=== PATIENT | female | born 1960 | race Caucasian/White ===

== ENCOUNTER 2018-06-16 14:46 | Observation (INO) | payer OTHER, MEDICAID, SELFPAY ==
[2018-06-16] VITALS (9 sets, daily range): BP systolic 99–117; BP diastolic 46–67; PULSE 64–72; RESP 13–20; TEMP 36.5–36.6; O2SAT 94–99; BMI 33.2
--- NOTE | 2018-06-16 | DI.ECHO.S_ITS ---
[facility] +---------+ : : [address] : : : : [address] : : : : [place], : : : : [place] [id number] : : : : Phone: [phone] + On license of [facility]-2017 Echocardiogram Report + + :Name: SHUKRI RIZZO Study Date: 06/17/2018 Height: 63 in : :[facility] Exam Location: [facility] Weight: 191 lb : : Gender: Female BSA: 1.9 m2 : :: 1960 Age: 58 yrs BP: 143/81 mmHg: :Reason For Study: Large Acute PE : :Ordering Physician: [place] : :Hospitalist Performed By: Carla Page : :Referring: MITCHEL MARCANO : + + Interpretation Summary The ejection fraction is estimated to be 60-65%. The right ventricle is mildly dilated. The right ventricular systolic function is normal. There is no significant valvular heart disease. Procedure: A two-dimensional transthoracic echocardiogram with color flow and Doppler was performed. The study quality was technically adequate. There is no prior echocardiogram noted for this patient. The patient was in normal sinus rhythm during the exam. Left Ventricle: The left ventricle is normal in size, wall thickness, and systolic function without any focal wall motion abnormalities. The ejection fraction is estimated to be 60-65%. Left ventricular wall motion is normal. Right Ventricle: The right ventricle is mildly dilated. The right ventricular systolic function is normal. Atria: The left atrium is mildly dilated. Right atrial size is normal. There is no Doppler evidence for an interatrial shunt. Mitral Valve: The mitral valve is normal in structure and function. There is mild mitral annular calcification. There is trace mitral regurgitation. Aortic Valve: The aortic valve is trileaflet. The aortic valve opens well. No aortic regurgitation is present. Tricuspid Valve: The tricuspid valve is normal in structure and function. There is trace tricuspid regurgitation. The right ventricular systolic pressure is estimated to be at least 23 mmHg based on an estimated right atrial pressure of 3 mm Hg. Pulmonic Valve: The pulmonic valve is not well visualized. There is a trace or physiologic amount of pulmonic regurgitation. Great Vessels: The aortic root is normal size. The ascending aorta is at the upper limits of normal in size. The aortic arch is normal in size. The pulmonary artery is not well visualized, but is probably normal size. The IVC is of normal diameter and collapses greater than 50% with a sniff. This suggests a low right atrial pressure of 3 mm Hg. Pericardium/ Pleura There is no pericardial effusion. Can not rule out left sided pleural effusion. MMode/2D Measurements & Calculations LVIDd: 4.8 cm AoV Openin.6 cm LVIDs: 2.6 cm LVOT diam: 2.2 cm IVSd: 0.73 cm Ao root diam: 3.7 cm LVPWd: 0.68 cm asc Aorta Diam: 3.4 cm LV flowers. diameter/BSA (cm/m^2): 2.5 Ao Arch Diam (Prox Trans): 3.0 cm LV sys. diameter/BSA (cm/m^2): 1.4 FS: 45.5 % EPSS: 0.20 cm LA A2 area: 22.8 cm2 RA long axis: 5.7 cm LA A4 area: 22.3 cm2 RA area: 19.4 cm2 LA length (vol): 5.9 cm RA vol: 56.1 ml LA vol: 73.1 ml RA : 29.6 ml/m2 LA vol index: 38.6 ml/m2 RVD1 (basal): 4.3 cm IVC diam: 1.9 cm TAPSE: 2.4 cm Doppler Measurements & Calculations Ao V2 max: 168.3 cm/sec LVOT Max Mohamud: 117.3 cm/sec Ao V2 mean: 121.0 cm/sec LV V1 max P.5 mmHg Ao V2 VTI: 35.6 cm LV V1 VTI: 25.7 cm Ao max P.3 mmHg Ao mean P.3 mmHg JESI(I,D): 2.8 cm2 MV E max mohamud: 94.4 cm/sec JESI(V,D): 2.7 cm2 MV A max mohamud: 58.7 cm/sec JESI indexed to BSA (cm^2/m^2): 1.5 MV E/A: 1.6 sev ratio: 0.72 Med Peak E' Mohamud: 6.9 cm/sec E/E' med: 13.7 Lat Peak E' Mohamud: 14.1 cm/sec E/E' lat: 6.7 E/e' average: 10.2 MV dec time: 0.20 sec TR max mohamud: 225.3 cm/sec MV P1/2t: 58.8 msec TR max P.3 mmHg MVA(P1/2t): 3.7 cm2 PA V2 max: 83.4 cm/sec SV(LVOT): 99.8 ml PA V2 mean: 63.2 cm/sec PA mean P.7 mmHg PA Accel Time: 0.11 sec Reading Physician:01:17 PM
--- NOTE | 2018-06-16 15:11 | ED.CHESTPAIN ---
HPI - Chest Pain General Chief Complaint: Chest Pain Stated Complaint: Chest pain sob Time Seen by Provider: 06/16/18 15:01 Source: patient Mode of arrival: ambulatory Limitations: no limitations History of Present Illness HPI narrative: Patient is a 58-year-old female with history of breast cancer and pulmonary embolism presenting today with 4 day history of right-sided chest pain. She says she was smoking some marijuana the next day she had some right-sided pain. she tried her albuterol inhaler which she said did not help. He then she thought that she was having a pulmonary embolism she had 10 years ago, she took 10 mg x2 doses of Coumadin 1 last night and 1 the night before. Today she coughed up large blood clots. She overall is feeling better. She denies any fever or chills. She is not on any hormones she no recent traveling. MD complaint: chest pain Related Data Home Medications Medication Instructions Recorded Confirmed Essential Oils 1 dose PO DAILY 06/16/18 06/16/18 MigreLief 1 tab PO DAILY 06/16/18 06/16/18 Vitamin B-12 1 tab PO DAILY 06/16/18 06/16/18 acyclovir 1 applic TOPICAL DIRECTED 06/16/18 06/16/18 albuterol sulfate [ProAir HFA] 1 puff INHALATION PRN PRN 06/16/18 06/16/18 cannabidiol (CBD) extract 1 dose PO BID 06/16/18 06/16/18 escitalopram oxalate 5 mg PO DAILY 06/16/18 06/16/18 fluticasone propion-salmeterol 1 puff INHALATION BID 06/16/18 06/16/18 lysine 1 tab PO DAILY 06/16/18 06/16/18 omega 1-xbj-gfg-fish oil [Fish Oil] 1 dose PO DAILY 06/16/18 06/16/18 turmeric 1 cap PO DAILY 06/16/18 06/16/18 valacyclovir 1 g PO DAILY 06/16/18 06/16/18 warfarin [Coumadin] 10 mg PO QPM 06/16/18 06/16/18 Allergies Allergy/AdvReac Type Severity Reaction Status Date / Time No Known Drug Allergies Allergy Verified 06/16/18 17:11 Review of Systems Review of Systems ROS Unobtainable: All systems reviewed & are unremarkable except as noted in HPI and below Constitutional Denies chills, Denies fever(s), Denies lethargy and Denies weakness ENT Ears, Nose, Mouth, and Throat: Denies abnormal hearing Cardiovascular Reports as per HPI, Reports chest pain (Right-sided), Denies rapid heart rate, Denies pedal edema, Denies edema and Reports dyspnea Respiratory Denies cough, Reports hemoptysis and Reports dyspnea Gastrointestinal Gastrointestinal: Denies abdominal pain, Denies change in bowel habits, Denies diarrhea, Denies nausea and Denies vomiting Genitourinary Denies hematuria, Denies flank pain, Denies urinary incontinence and Denies urinary urgency Integumentary/Breasts Denies pruritus, Denies erythema, Denies rash and Denies wounds Neurologic Denies abnormal hearing, Denies confusion and Denies weakness Psychiatric Denies confusion [facility] Medical History (Updated 06/16/18 @ 17:30 by Selene Hunter DO) Breast cancer (Acute) Pulmonary embolism (Acute) Social History (Updated 06/16/18 @ 15:38 by Selene Hunter DO) Smoking Status: Former smoker alcohol intake: never substance use type: marijuana Social History (Updated 06/16/18 @ 15:38 by Selene Hunter DO) Smoking Status: Former smoker alcohol intake: never substance use type: marijuana Comment: All siblings had pulmonary embolisms some of them have from the Exam Initial Vital Signs Initial Vital Signs: Vital Signs Temperature 97.9 F 06/16/18 15:19 Pulse Rate 72 06/16/18 15:19 Respiratory Rate 20 06/16/18 15:19 Blood Pressure 110/60 06/16/18 15:19 Pulse Oximetry 99 06/16/18 15:19 GENERAL: Well-appearing, well-nourished and in no acute distress. HEENT: Head atraumatic,EOMI, pupils reactive, face symmetric, CARDIOVASCULAR: Regular rate and rhythm without murmurs, rubs or gallops. RESPIRATORY: Breath sounds equal bilaterally, no wheezes rales or rhonchi. ABDOMEN: Soft, nontender. Normoactive bowel sounds all 4 quadrants. No guarding or rebound. EXTREMITIES: Normal range of motion, no clubbing or edema. Neurovascularly intact NEUROLOGICAL: Alert and oriented x4.Normal gait and speech. Cranial nerves II through XII grossly intact. SKIN: Warm, dry, no laceration, no petechiae, no rashes or lesions. Course Orders Ordered: ED Orders 06/16/18 15:00 Complete Blood Count AUTO DIFF Stat Comprehensive Metabolic Panel Stat Lipase Stat Partial Thromboplastin Time Stat Prothrombin Time INR Stat Troponin & CK Cardiac Panel Stat 06/16/18 15:29 EKG-12 Lead Stat 06/16/18 15:30 CT angio chest PE protocol Stat 06/16/18 17:14 Partial Thromboplastin Time Stat 06/16/18 23:00 PTT [Partial Thromboplastin Time] Q6H 06/17/18 05:00 Hemoglobin and Hematocrit DAILY PTT [Partial Thromboplastin Time] Q6H 06/17/18 11:00 PTT [Partial Thromboplastin Time] Q6H Heparin Sodium/Dextrose (Heparin Drip) 25,000 unit in 500 mls @ 31.32 mls/hr IV CONT ELLI; Protocol Last Admin: 06/16/18 17:13 Dose: 18 units/kg/hr, 31.32 mls/hr Sodium Chloride (Normal Saline 0.9%) 1,000 mls @ 84 mls/hr IV CONT ELLI Last Admin: 06/16/18 17:17 Dose: 84 mls/hr Discontinued Medications Heparin Sodium (Porcine) (Heparin) 7,000 unit 80 unit/kg (7000 unit) IV NOW ONE Stop: 06/16/18 17:01 Last Admin: 06/16/18 17:12 Dose: 7,000 unit Vital Signs - 8 hr 06/16/18 15:19 06/16/18 16:00 06/16/18 17:06 Temperature 97.9 F Pulse Rate 72 69 68 Respiratory Rate 20 18 13 Blood Pressure 110/60 Blood Pressure [Left Arm] 104/67 Pulse Oximetry 99 96 06/16/18 17:30 Temperature Pulse Rate 71 Respiratory Rate 19 Blood Pressure Blood Pressure [Left Arm] 99/46 L Pulse Oximetry 98 MDM - Chest Pain Lab Data Attestation: I reviewed the patient's lab results. Result diagrams: 06/16/18 15:00 06/16/18 15:00 Lab Results 06/16/18 06/16/18 06/16/18 Range/Units 15:00 15:00 15:00 WBC 8.2 (4.5-11.0) X10^3/uL RBC 4.53 (4.0-5.2) X10^6/uL Hgb 13.1 (12.0-16.0) g/dL Hct 38.4 (36-46) % MCV 84.7 (80-100) fL MCH 28.9 (26-34) PG MCHC 34.1 (30-36) % RDW 14.1 (11.6-14.8) % Plt Count 250 (150-400) X10^3/uL Neut % (Auto) 68.9 (50-75) % Lymph % (Auto) 17.1 L (25-40) % [place] % (Auto) 9.2 (3-14) % Eos % (Auto) 4.2 H (2-4) % Baso % (Auto) 0.6 (0-2) % Neut # (Auto) 5600 (5379-1627) /uL Lymph # (Auto) 1400 (9696-1649) /uL [place] # (Auto) 800 (0-900) /uL Eos # (Auto) 300 (0-450) /uL Baso # (Auto) 100 (0-100) /uL PT 17.1 H (10.1-12.7) SECONDS INR 1.5 H (0.9-1.3) APTT 30 (26.4-36.2) SECONDS Sodium 136 L (137-145) mmol/L Potassium 4.2 (3.4-5.1) mmol/L Chloride 102 (98-107) mmol/L Carbon Dioxide 26 (22-32) mmol/L BUN 8 (7-17) mg/dL Creatinine 0.50 L (0.52-1.04) mg/dL Estimated GFR > 60.0 (>60) mL/min BUN/Creatinine Ratio 16.0 (6-22) Glucose 84 (70-100) mg/dL Calcium 9.1 (8.4-10.2) mg/dL Total Bilirubin 0.3 (0.2-1.3) mg/dL AST 17 (14-36) IU/L ALT 19 (9-52) IU/L Alkaline Phosphatase 84 (38-126) U/L Total Creatine Kinase 51 (30-135) U/L CK-MB (CK-2) TNP CK-MB (CK-2) Rel Index TNP Troponin I < 0.012 (0.01-0.034) ng/mL Total Protein 7.5 (6.3-8.2) g/dL Albumin 4.2 (3.5-5.0) g/dL Globulin 3.3 (1.7-4.1) g/dL Albumin/Globulin Ratio 1.3 (1.0-2.8) Lipase 52 (23-300) U/L / Range/Units 17:14 WBC (4.5-11.0) X10^3/uL RBC (4.0-5.2) X10^6/uL Hgb (12.0-16.0) g/dL Hct (36-46) % MCV (80-100) fL MCH (26-34) PG MCHC (30-36) % RDW (11.6-14.8) % Plt Count (150-400) X10^3/uL Neut % (Auto) (50-75) % Lymph % (Auto) (25-40) % [place] % (Auto) (3-14) % Eos % (Auto) (2-4) % Baso % (Auto) (0-2) % Neut # (Auto) (6091-3684) /uL Lymph # (Auto) (6200-2124) /uL [place] # (Auto) (0-900) /uL Eos # (Auto) (0-450) /uL Baso # (Auto) (0-100) /uL PT (10.1-12.7) SECONDS INR (0.9-1.3) APTT 31 (26.4-36.2) SECONDS Sodium (137-145) mmol/L Potassium (3.4-5.1) mmol/L Chloride (98-107) mmol/L Carbon Dioxide (22-32) mmol/L BUN (7-17) mg/dL Creatinine (0.52-1.04) mg/dL Estimated GFR (>60) mL/min BUN/Creatinine Ratio (6-22) Glucose (70-100) mg/dL Calcium (8.4-10.2) mg/dL Total Bilirubin (0.2-1.3) mg/dL AST (14-36) IU/L ALT (9-52) IU/L Alkaline Phosphatase (38-126) U/L Total Creatine Kinase (30-135) U/L CK-MB (CK-2) CK-MB (CK-2) Rel Index Troponin I (0.01-0.034) ng/mL Total Protein (6.3-8.2) g/dL Albumin (3.5-5.0) g/dL Globulin (1.7-4.1) g/dL Albumin/Globulin Ratio (1.0-2.8) Lipase (23-300) U/L Imaging Data CT scan - chest: Radiologist's impression: PROCEDURE: CT ANGIO CHEST PE PROTOCOL INDICATIONS: right sided pain hx of PE TECHNIQUE: After the administration of intravenous contrast, 2 mm thick sections acquired from the pulmonary apices to the posterior costophrenic angles. 3-dimensional maximum intensity projection (MIP) coronal and sagittal reformats were then acquired through the thorax. For radiation dose reduction, the following was used: automated exposure control, adjustment of mA and/or kV according to patient size. COMPARISON: None. FINDINGS: Image quality: Excellent. Pulmonary arteries: Main pulmonary trunk and left arteries are normal in size, and demonstrate no intraluminal filling defects to suggest central pulmonary embolism. There is large filling defect within distal right main pulmonary artery extending to segmental and subsegmental branches of right upper, middle and lower lobe pulmonary arteries consistent with extensive right-sided pulmonary emboli. Main pulmonary trunk is slightly enlarged measures up to 3.1 cm in diameter. Early pulmonary vascular hypertension cannot be excluded. Lungs and pleura: There is a small right pleural effusion. Ill-defined patchy airspace opacities are seen scattered in anterior periphery of right upper lobe, anterior and medial periphery of right middle lobe and posterior aspect of right lower lobe. Left basilar scarring/atelectasis is also seen. No pneumothorax. Central and peripheral airways are patent. Mediastinum: Heart size is enlarged, without pericardial effusion. No mediastinal or hilar adenopathy. Thoracic aorta is normal in caliber and enhancement. Esophagus is normal in caliber, with a small hiatal hernia. Bones and chest wall: No suspicious bony lesions. Ribs and thoracic spine appear intact throughout. Left thyroid lobe is asymmetrically enlarged containing coarse calcifications and suggestion of hypodense left thyroid nodule in mid to lower pole. No axillary or supraclavicular adenopathy. Abdomen: Visualized upper abdominal solid organs appear normal in the early arterial phase of enhancement. IMPRESSION: 1. Extensive pulmonary emboli involving right main pulmonary artery distally extending to segmental and subsegmental branches of right pulmonary arteries. No left-sided pulmonary emboli. 2. Small right pleural effusion. Patchy small infiltrates/atelectasis scattered in periphery of right lung field and left lung base. No pneumothorax. Airway is patent. 3. Mildly enlarged main pulmonary artery, early pulmonary vascular hypertension cannot be excluded. 4. Asymmetrically enlarged left thyroid lobe with dystrophic calcification and suggestion of hypodense left thyroid lobe nodule suspicious for nodular goiter. Dictated by: Fransisco Hamm M.D. on 06/16/2018 at 16:53 ECG Data Attestation: I personally reviewed and interpreted this ECG as follows: Prior ECG tracings: not available for review Interpretation: Normal sinus rhythm rate 71 year interval [address] changes or T-wave inversions MDM Narrative Medical decision making narrative: 4:55 p.m. I received a call from Radiology Dr. Dueñas, radiology who states the patient does have a large right-sided pulmonary embolism. I asked specifically about right heart strain. He said it is relatively large but does not appreciate right heart strain. Patient is feeling better after she she coughed up a blood clots at home. She is not hypoxic or hypotensive. Hemodynamically stable. INR is subtherapeutic 1.5 she is started on heparin bolus and heparin drip. Dr. Crawford, happily accepts patient and is in ED to see and evaluate the patient. Discharge Plan Departure Patient Disposition: Admitted As Inpatient Clinical Impression: Pulmonary embolism Qualifiers: Pulmonary embolism type: unspecified Chronicity: acute Acute cor pulmonale presence: without acute cor pulmonale Qualified Code(s): I26.99 - Other pulmonary embolism without acute cor pulmonale
--- NOTE | 2018-06-16 15:30 | DI.CT.S_ITS ---
PROCEDURE: CT ANGIO CHEST PE PROTOCOL INDICATIONS: right sided pain hx of PE TECHNIQUE: After the administration of intravenous contrast, 2 mm thick sections acquired from the pulmonary apices to the posterior costophrenic angles. 3-dimensional maximum intensity projection (MIP) coronal and sagittal reformats were then acquired through the thorax. For radiation dose reduction, the following was used: automated exposure control, adjustment of mA and/or kV according to patient size. COMPARISON: None. FINDINGS: Image quality: Excellent. Pulmonary arteries: Main pulmonary trunk and left arteries are normal in size, and demonstrate no intraluminal filling defects to suggest central pulmonary embolism. There is large filling defect within distal right main pulmonary artery extending to segmental and subsegmental branches of right upper, middle and lower lobe pulmonary arteries consistent with extensive right-sided pulmonary emboli. Main pulmonary trunk is slightly enlarged measures up to 3.1 cm in diameter. Early pulmonary vascular hypertension cannot be excluded. Lungs and pleura: There is a small right pleural effusion. Ill-defined patchy airspace opacities are seen scattered in anterior periphery of right upper lobe, anterior and medial periphery of right middle lobe and posterior aspect of right lower lobe. Left basilar scarring/atelectasis is also seen. No pneumothorax. Central and peripheral airways are patent. Mediastinum: Heart size is enlarged, without pericardial effusion. No mediastinal or hilar adenopathy. Thoracic aorta is normal in caliber and enhancement. Esophagus is normal in caliber, with a small hiatal hernia. Bones and chest wall: No suspicious bony lesions. Ribs and thoracic spine appear intact throughout. Left thyroid lobe is asymmetrically enlarged containing coarse calcifications and suggestion of hypodense left thyroid nodule in mid to lower pole. No axillary or supraclavicular adenopathy. Abdomen: Visualized upper abdominal solid organs appear normal in the early arterial phase of enhancement. IMPRESSION: 1. Extensive pulmonary emboli involving right main pulmonary artery distally extending to segmental and subsegmental branches of right pulmonary arteries. No left-sided pulmonary emboli. 2. Small right pleural effusion. Patchy small infiltrates/atelectasis scattered in periphery of right lung field and left lung base. No pneumothorax. Airway is patent. 3. Mildly enlarged main pulmonary artery, early pulmonary vascular hypertension cannot be excluded. 4. Asymmetrically enlarged left thyroid lobe with dystrophic calcification and suggestion of hypodense left thyroid lobe nodule suspicious for nodular goiter. Dictated by: Fransisco Hamm M.D. on 06/16/2018 at 16:53 Approved by: Fransisco Hamm M.D. on 06/16/2018 at 17:02
--- NOTE | 2018-06-16 15:38 | ED_ITS ---
HPI - Chest Pain General Chief Complaint: Chest Pain Stated Complaint: Chest pain sob Time Seen by Provider: 06/16/18 15:01 Source: patient Mode of arrival: ambulatory Limitations: no limitations History of Present Illness HPI narrative: Patient is a 58-year-old female with history of breast cancer and pulmonary embolism presenting today with 4 day history of right-sided chest pain. She says she was smoking some marijuana the next day she had some right- sided pain. she tried her albuterol inhaler which she said did not help. He then she thought that she was having a pulmonary embolism she had 10 years ago, she took 10 mg x2 doses of Coumadin 1 last night and 1 the night before. Today she coughed up large blood clots. She overall is feeling better. She denies any fever or chills. She is not on any hormones she no recent traveling. MD complaint: chest pain Related Data Home Medications Medication Instructions Recorded Confirmed Essential Oils 1 dose PO DAILY 06/16/18 06/16/18 MigreLief 1 tab PO DAILY 06/16/18 06/16/18 Vitamin B-12 1 tab PO DAILY 06/16/18 06/16/18 acyclovir 1 applic TOPICAL DIRECTED 06/16/18 06/16/18 albuterol sulfate [ProAir HFA] 1 puff INHALATION PRN PRN 06/16/18 06/16/18 cannabidiol (CBD) extract 1 dose PO BID 06/16/18 06/16/18 escitalopram oxalate 5 mg PO DAILY 06/16/18 06/16/18 fluticasone propion-salmeterol 1 puff INHALATION BID 06/16/18 06/16/18 lysine 1 tab PO DAILY 06/16/18 06/16/18 omega 9-sug-bjk-fish oil [Fish Oil] 1 dose PO DAILY 06/16/18 06/16/18 turmeric 1 cap PO DAILY 06/16/18 06/16/18 valacyclovir 1 g PO DAILY 06/16/18 06/16/18 warfarin [Coumadin] 10 mg PO QPM 06/16/18 06/16/18 Allergies Allergy/AdvReac Type Severity Reaction Status Date / Time No Known Drug Allergies Allergy Verified 06/16/18 17:11 Review of Systems Review of Systems ROS Unobtainable: All systems reviewed & are unremarkable except as noted in HPI and below Constitutional Denies chills, Denies fever(s), Denies lethargy and Denies weakness ENT Ears, Nose, Mouth, and Throat: Denies abnormal hearing Cardiovascular Reports as per HPI, Reports chest pain (Right-sided), Denies rapid heart rate, Denies pedal edema, Denies edema and Reports dyspnea Respiratory Denies cough, Reports hemoptysis and Reports dyspnea Gastrointestinal Gastrointestinal: Denies abdominal pain, Denies change in bowel habits, Denies diarrhea, Denies nausea and Denies vomiting Genitourinary Denies hematuria, Denies flank pain, Denies urinary incontinence and Denies urinary urgency Integumentary/Breasts Denies pruritus, Denies erythema, Denies rash and Denies wounds Neurologic Denies abnormal hearing, Denies confusion and Denies weakness Psychiatric Denies confusion [facility] Medical History (Updated 06/16/18 @ 17:30 by Selene Hunter DO) Breast cancer (Acute) Pulmonary embolism (Acute) Social History (Updated 06/16/18 @ 15:38 by Selene Hunter DO) Smoking Status: Former smoker alcohol intake: never substance use type: marijuana Social History (Updated 06/16/18 @ 15:38 by Selene Hunter DO) Smoking Status: Former smoker alcohol intake: never substance use type: marijuana Comment: All siblings had pulmonary embolisms some of them have from the Exam Initial Vital Signs Initial Vital Signs: Vital Signs Temperature 97.9 F 06/16/18 15:19 Pulse Rate 72 06/16/18 15:19 Respiratory Rate 20 06/16/18 15:19 Blood Pressure 110/60 06/16/18 15:19 Pulse Oximetry 99 06/16/18 15:19 GENERAL: Well-appearing, well-nourished and in no acute distress. HEENT: Head atraumatic,EOMI, pupils reactive, face symmetric, CARDIOVASCULAR: Regular rate and rhythm without murmurs, rubs or gallops. RESPIRATORY: Breath sounds equal bilaterally, no wheezes rales or rhonchi. ABDOMEN: Soft, nontender. Normoactive bowel sounds all 4 quadrants. No guarding or rebound. EXTREMITIES: Normal range of motion, no clubbing or edema. Neurovascularly intact NEUROLOGICAL: Alert and oriented x4.Normal gait and speech. Cranial nerves II through XII grossly intact. SKIN: Warm, dry, no laceration, no petechiae, no rashes or lesions. Course Orders Ordered: ED Orders 06/16/18 15:00 Complete Blood Count AUTO DIFF Stat Comprehensive Metabolic Panel Stat Lipase Stat Partial Thromboplastin Time Stat Prothrombin Time INR Stat Troponin & CK Cardiac Panel Stat 06/16/18 15:29 EKG-12 Lead Stat 06/16/18 15:30 CT angio chest PE protocol Stat 06/16/18 17:14 Partial Thromboplastin Time Stat 06/16/18 23:00 PTT [Partial Thromboplastin Time] Q6H 06/17/18 05:00 Hemoglobin and Hematocrit DAILY PTT [Partial Thromboplastin Time] Q6H 06/17/18 11:00 PTT [Partial Thromboplastin Time] Q6H Heparin Sodium/Dextrose (Heparin Drip) 25,000 unit in 500 mls @ 31.32 mls/hr IV CONT ELLI; Protocol Last Admin: 06/16/18 17:13 Dose: 18 units/kg/hr, 31.32 mls/hr Sodium Chloride (Normal Saline 0.9%) 1,000 mls @ 84 mls/hr IV CONT ELLI Last Admin: 06/16/18 17:17 Dose: 84 mls/hr Discontinued Medications Heparin Sodium (Porcine) (Heparin) 7,000 unit 80 unit/kg (7000 unit) IV NOW ONE Stop: 06/16/18 17:01 Last Admin: 06/16/18 17:12 Dose: 7,000 unit Vital Signs - 8 hr 06/16/18 15:19 06/16/18 16:00 06/16/18 17:06 Temperature 97.9 F Pulse Rate 72 69 68 Respiratory Rate 20 18 13 Blood Pressure 110/60 Blood Pressure [Left Arm] 104/67 Pulse Oximetry 99 96 06/16/18 17:30 Temperature Pulse Rate 71 Respiratory Rate 19 Blood Pressure Blood Pressure [Left Arm] 99/46 L Pulse Oximetry 98 MDM - Chest Pain Lab Data Attestation: I reviewed the patient's lab results. Result diagrams: 06/16/18 15:00 06/16/18 15:00 Lab Results 06/16/18 06/16/18 06/16/18 Range/Units 15:00 15:00 15:00 WBC 8.2 (4.5-11.0) X10^3/uL RBC 4.53 (4.0-5.2) X10^6/uL Hgb 13.1 (12.0-16.0) g/dL Hct 38.4 (36-46) % MCV 84.7 (80-100) fL MCH 28.9 (26-34) PG MCHC 34.1 (30-36) % RDW 14.1 (11.6-14.8) % Plt Count 250 (150-400) X10^3/uL Neut % (Auto) 68.9 (50-75) % Lymph % (Auto) 17.1 L (25-40) % [place] % (Auto) 9.2 (3-14) % Eos % (Auto) 4.2 H (2-4) % Baso % (Auto) 0.6 (0-2) % Neut # (Auto) 5600 (3967-4469) /uL Lymph # (Auto) 1400 (1504-0430) /uL [place] # (Auto) 800 (0-900) /uL Eos # (Auto) 300 (0-450) /uL Baso # (Auto) 100 (0-100) /uL PT 17.1 H (10.1-12.7) SECONDS INR 1.5 H (0.9-1.3) APTT 30 (26.4-36.2) SECONDS Sodium 136 L (137-145) mmol/L Potassium 4.2 (3.4-5.1) mmol/L Chloride 102 (98-107) mmol/L Carbon Dioxide 26 (22-32) mmol/L BUN 8 (7-17) mg/dL Creatinine 0.50 L (0.52-1.04) mg/dL Estimated GFR > 60.0 (>60) mL/min BUN/Creatinine Ratio 16.0 (6-22) Glucose 84 (70-100) mg/dL Calcium 9.1 (8.4-10.2) mg/dL Total Bilirubin 0.3 (0.2-1.3) mg/dL AST 17 (14-36) IU/L ALT 19 (9-52) IU/L Alkaline Phosphatase 84 (38-126) U/L Total Creatine Kinase 51 (30-135) U/L CK-MB (CK-2) TNP CK-MB (CK-2) Rel Index TNP Troponin I < 0.012 (0.01-0.034) ng/mL Total Protein 7.5 (6.3-8.2) g/dL Albumin 4.2 (3.5-5.0) g/dL Globulin 3.3 (1.7-4.1) g/dL Albumin/Globulin Ratio 1.3 (1.0-2.8) Lipase 52 (23-300) U/L / Range/Units 17:14 WBC (4.5-11.0) X10^3/uL RBC (4.0-5.2) X10^6/uL Hgb (12.0-16.0) g/dL Hct (36-46) % MCV (80-100) fL MCH (26-34) PG MCHC (30-36) % RDW (11.6-14.8) % Plt Count (150-400) X10^3/uL Neut % (Auto) (50-75) % Lymph % (Auto) (25-40) % [place] % (Auto) (3-14) % Eos % (Auto) (2-4) % Baso % (Auto) (0-2) % Neut # (Auto) (7849-1174) /uL Lymph # (Auto) (1003-8221) /uL [place] # (Auto) (0-900) /uL Eos # (Auto) (0-450) /uL Baso # (Auto) (0-100) /uL PT (10.1-12.7) SECONDS INR (0.9-1.3) APTT 31 (26.4-36.2) SECONDS Sodium (137-145) mmol/L Potassium (3.4-5.1) mmol/L Chloride (98-107) mmol/L Carbon Dioxide (22-32) mmol/L BUN (7-17) mg/dL Creatinine (0.52-1.04) mg/dL Estimated GFR (>60) mL/min BUN/Creatinine Ratio (6-22) Glucose (70-100) mg/dL Calcium (8.4-10.2) mg/dL Total Bilirubin (0.2-1.3) mg/dL AST (14-36) IU/L ALT (9-52) IU/L Alkaline Phosphatase (38-126) U/L Total Creatine Kinase (30-135) U/L CK-MB (CK-2) CK-MB (CK-2) Rel Index Troponin I (0.01-0.034) ng/mL Total Protein (6.3-8.2) g/dL Albumin (3.5-5.0) g/dL Globulin (1.7-4.1) g/dL Albumin/Globulin Ratio (1.0-2.8) Lipase (23-300) U/L Imaging Data CT scan - chest: Radiologist's impression: PROCEDURE: CT ANGIO CHEST PE PROTOCOL INDICATIONS: right sided pain hx of PE TECHNIQUE: After the administration of intravenous contrast, 2 mm thick sections acquired from the pulmonary apices to the posterior costophrenic angles. 3-dimensional maximum intensity projection (MIP) coronal and sagittal reformats were then acquired through the thorax. For radiation dose reduction, the following was used: automated exposure control, adjustment of mA and/or kV according to patient size. COMPARISON: None. FINDINGS: Image quality: Excellent. Pulmonary arteries: Main pulmonary trunk and left arteries are normal in size, and demonstrate no intraluminal filling defects to suggest central pulmonary embolism. There is large filling defect within distal right main pulmonary artery extending to segmental and subsegmental branches of right upper, middle and lower lobe pulmonary arteries consistent with extensive right-sided pulmonary emboli. Main pulmonary trunk is slightly enlarged measures up to 3.1 cm in diameter. Early pulmonary vascular hypertension cannot be excluded. Lungs and pleura: There is a small right pleural effusion. Ill-defined patchy airspace opacities are seen scattered in anterior periphery of right upper lobe, anterior and medial periphery of right middle lobe and posterior aspect of right lower lobe. Left basilar scarring/atelectasis is also seen. No pneumothorax. Central and peripheral airways are patent. Mediastinum: Heart size is enlarged, without pericardial effusion. No mediast inal or hilar adenopathy. Thoracic aorta is normal in caliber and enhancement. Esophagus is normal in caliber, with a small hiatal hernia. Bones and chest wall: No suspicious bony lesions. Ribs and thoracic spine appear intact throughout. Left thyroid lobe is asymmetrically enlarged containing coarse calcifications and suggestion of hypodense left thyroid nodule in mid to lower pole. No axillary or supraclavicular adenopathy. Abdomen: Visualized upper abdominal solid organs appear normal in the early arterial phase of enhancement. IMPRESSION: 1. Extensive pulmonary emboli involving right main pulmonary artery distally extending to segmental and subsegmental branches of right pulmonary arteries. No left-sided pulmonary emboli. 2. Small right pleural effusion. Patchy small infiltrates/atelectasis scattered in periphery of right lung field and left lung base. No pneumothorax. Airway is patent. 3. Mildly enlarged main pulmonary artery, early pulmonary vascular hypertension cannot be excluded. 4. Asymmetrically enlarged left thyroid lobe with dystrophic calcification and suggestion of hypodense left thyroid lobe nodule suspicious for nodular goiter. Dictated by: Fransisco Hamm M.D. on 06/16/2018 at 16:53 ECG Data Attestation: I personally reviewed and interpreted this ECG as follows: Prior ECG tracings: not available for review Interpretation: Normal sinus rhythm rate 71 year interval [address] changes or T-wave inversions MDM Narrative Medical decision making narrative: 4:55 p.m. I received a call from Radiology Dr. Dueñas, radiology who states the patient does have a large right-sided pulmonary embolism. I asked specifically about right heart strain. He said it is relatively large but does not appreciate right heart strain. Patient is feeling better after she she coughed up a blood clots at home. She is not hypoxic or hypotensive. Hemodynamically stable. INR is subtherapeutic 1.5 she is started on heparin bolus and heparin drip. Dr. Crawford, happily accepts patient and is in ED to see and evaluate the patient. Discharge Plan Departure Patient Disposition: Admitted As Inpatient Clinical Impression: Pulmonary embolism Qualifiers: Pulmonary embolism type: unspecified Chronicity: acute Acute cor pulmonale presence: without acute cor pulmonale Qualified Code(s): I26.99 - Other pulmonary embolism without acute cor pulmonale
[2018-06-16 15:44] LABS: Add Manual Diff / Slide Review NO; Basophils Absolute Auto 100 /uL (0-100); Basophils Percent Auto 0.6 % (0-2); Eosinophils Absolute Auto 300 /uL (0-450); Eosinophils Percent Auto 4.2 % (2-4); Hematocrit 38.4 % (36-46); Hemoglobin 13.1 g/dL (12.0-16.0); Lymphocytes Absolute Auto 1400 /uL (1100-4500); Lymphocytes Percent Auto 17.1 % (25-40); Mean Corpuscular HGB Conc 34.1 % (30-36); Mean Corpuscular Hemoglobin 28.9 PG (26-34); Mean Corpuscular Volume 84.7 fL (80-100); Monocytes Absolute Auto 800 /uL (0-900); Monocytes Percent Auto 9.2 % (3-14); Neutrophils Absolute Auto 5600 /uL (1500-7000); Neutrophils Percent Auto 68.9 % (50-75); Platelet Count 250 X10^3/uL (150-400); Red Blood Cell Count 4.53 X10^6/uL (4.0-5.2); Red Cell Distribution Width 14.1 % (11.6-14.8); White Blood Cell Count 8.2 X10^3/uL (4.5-11.0)
[2018-06-16 15:51] LABS: INR 1.5 (0.9-1.3); Prothrombin Time 17.1 SECONDS (10.1-12.7)
[2018-06-16 15:54] LABS: PTT Partial Thromboplastin Tim 30 SECONDS (26.4-36.2)
[2018-06-16 15:55] LABS: Alanine Aminotransferase 19 IU/L (9-52); Albumin 4.2 g/dL (3.5-5.0); Albumin Globulin Ratio 1.3 (1.0-2.8); Alkaline Phosphatase 84 U/L (38-126); Aspartate Aminotransferase 17 IU/L (14-36); Bilirubin Total 0.3 mg/dL (0.2-1.3); Blood Urea Nitrogen 8 mg/dL (7-17); Calcium 9.1 mg/dL (8.4-10.2); Carbon Dioxide 26 mmol/L (22-32); Chloride 102 mmol/L (98-107); Creatine Kinase 51 U/L (30-135); Estimated Glomerular Filt Rate > 60.0 mL/min (>60); Globulin 3.3 g/dL (1.7-4.1); Glucose 84 mg/dL (70-100); HEMOLYSIS < 15 (0-50); Lipase 52 U/L (23-300); Potassium 4.2 mmol/L (3.4-5.1); Sodium 136 mmol/L (137-145); Total Protein 7.5 g/dL (6.3-8.2)
[2018-06-16 16:06] LABS: Troponin I < 0.012 ng/mL (0.01-0.034)
[2018-06-16] MEDS: HEPARIN 5,000 UNIT/ML VIAL 7000 UNIT IV (17:12)
[2018-06-16] MEDS: HEPARIN DRIP 25,000 UNIT/500 ML IV.SOLN 31.32 UNIT IV (17:13)
[2018-06-16] MEDS: SODIUM CHLORIDE 0.9% 1,000 ML 84 ML IV (17:17)
[2018-06-16 17:34] LABS: PTT Partial Thromboplastin Tim 31 SECONDS (26.4-36.2)
--- NOTE | 2018-06-16 18:05 | PC.NURSE ---
dr. car here to see
--- NOTE | 2018-06-16 18:27 | P.HP_ITS ---
History of Present Illness Date Patient Seen: 06/16/18 Chief complaint: Chest pain sob Narrative: The patient is a 58-year-old female with a history of pulmonary embolus who was to be maintained on lifelong Coumadin. This was diagnosed in 2006. Two years ago the patient discontinued Coumadin as she did not like g etting frequent pro times. The patient also was diagnosed with breast cancer in 2010. She has had a bilateral mastectomy. She was initially treated with chemo and radiation for right breast cancer and ultimately had a left breast removed as well. She was in her usual state of health until the weekend. He developed severe chest pain with pleuritic shortness of breath. Her pain became significa ntly worse on Friday. Seemed to ease up. Patient started taking Coumadin herself. She shared with her friends that she was concerned about having a pulmonary embolus who encouraged her to come into the hospital. She denies any fever or chills. She does reports some hemoptysis. She notes that her breathing has improved and her chest pain has gotten better. She has not had nausea vomiting or diarrhea. She denies any hematemesis or melena. She does report a remote history of gastritis with acyclovir but no other history of peptic ulcer disease. patient underwent a CT angiogram. This confirmed a large pulmonary embolus in the right lung. CT findings are as follows:Extensive pulmonary emboli involving right main pulmonary artery distally extending to segmental and subsegmental branches of right pulmonary arteries. No left-sided pulmonary emboli. Of note the patient reports a brother from pulmonary embolus. Another brother has an inferior vena cava filter. And she has another brother who also has had a history of pulmonary embolus. Patient does state she had a hyperco agulable workup and no identified hypercoagulable state was identified. despite this she was to be maintained on lifelong Coumadin and self discontinued it 2 years ago. Patient History Medical History (Updated 06/16/18 @ 18:36 by Belen Crawford MD) Breast cancer (Acute) Chronic headache (Acute) Depression (Acute) History of encephalitis (Acute) Pulmonary embolism (Acute) Surgical History (Updated 06/16/18 @ 18:29 by Belen Crawford MD) H/O bilateral mastectomy (Acute) Family History (Updated 06/16/18 @ 18:30 by Belen Crafword MD) Brother History of pulmonary embolus (PE) Social History (Updated 06/16/18 @ 15:38 by Selene Hunter DO) Smoking Status: Former smoker alcohol intake: never substance use type: marijuana Family & Social History Family History (Updated 06/16/18 @ 18:30 by eBlen Crawford MD) Brother History of pulmonary embolus (PE) Tobacco & Substance use: Smoking Status Former smoker alcohol intake never Meds Home Medications Medication Instructions Recorded Confirmed Type Essential Oils 1 dose PO DAILY 06/16/18 06/16/18 History MigreLief 1 tab PO DAILY 06/16/18 06/16/18 History Vitamin B-12 1 tab PO DAILY 06/16/18 06/16/18 History acyclovir 1 applic TOPICAL DIRECTED 06/16/18 06/16/18 History albuterol sulfate [ProAir HFA] 1 puff INHALATION PRN PRN 06/16/18 06/16/18 History cannabidiol (CBD) extract 1 dose PO BID 06/16/18 06/16/18 History escitalopram oxalate 5 mg PO DAILY 06/16/18 06/16/18 History fluticasone propion-salmeterol 1 puff INHALATION BID 06/16/18 06/16/18 History lysine 1 tab PO DAILY 06/16/18 06/16/18 History omega 3-oqs-odv-fish oil [Fish Oil] 1 dose PO DAILY 06/16/18 06/16/18 History turmeric 1 cap PO DAILY 06/16/18 06/16/18 History valacyclovir 1 g PO DAILY 06/16/18 06/16/18 History warfarin [Coumadin] 10 mg PO QPM 06/16/18 06/16/18 History Allergies Allergy/AdvReac Type Severity Reaction Status Date / Time pegfilgrastim [From Neulasta] Allergy Severe eyes closed Verified 06/16/18 18:31 Femera Allergy Intermediate Uncoded 06/16/18 18:31 Review of Systems Review of Systems All systems reviewed & are unremarkable except as noted in HPI and below Exam Vital Signs (past 8 hours): - 06/16/18 15:19 06/16/18 16:00 06/16/18 17:06 Temperature 97.9 F Pulse Rate 72 69 68 Respiratory Rate 20 18 13 Blood Pressure 110/60 Blood Pressure [Left Arm] 104/67 Pulse Oximetry 99 96 06/16/18 17:30 06/16/18 18:04 06/16/18 18:08 Temperature Pulse Rate 71 69 69 Respiratory Rate 19 17 17 Blood Pressure 117/51 L Blood Pressure [Left Arm] 99/46 L 117/51 L Pulse Oximetry 98 99 Oxygen Delivery Method Room Air Narrative Exam Narrative: Pleasant female resting in bed HEENT: Normocephalic atraumatic, oropharynx is clear, neck is supple, extraocular muscles are intact Lungs: Clear to auscultation Cardiac exam: Regular rate and rhythm normal S1-S2 Abdomen: Soft nontender nondistended, no hepatosplenomegaly Extremities: No edema Neuro exam: Cranial nerves 2-12 are intact, strength symmetric and equal, sensations grossly intact reflexes are brisk and equal gait is not assessed Psychiatric exam: Patient is somewhat labile, and tearful , no hallucination, no delusion Objective Labs Result Diagrams: 06/16/18 15:00 06/16/18 15:00 Labs: Laboratory Results - last 24 hr 06/16/18 06/16/18 06/16/18 15:00 15:00 15:00 WBC 8.2 RBC 4.53 Hgb 13.1 Hct 38.4 MCV 84.7 MCH 28.9 MCHC 34.1 RDW 14.1 Plt Count 250 Neut % (Auto) 68.9 Lymph % (Auto) 17.1 L [place] % (Auto) 9.2 Eos % (Auto) 4.2 H Baso % (Auto) 0.6 Neut # (Auto) 5600 Lymph # (Auto) 1400 [place] # (Auto) 800 Eos # (Auto) 300 Baso # (Auto) 100 PT 17.1 H INR 1.5 H APTT 30 Sodium 136 L Potassium 4.2 Chloride 102 Carbon Dioxide 26 BUN 8 Creatinine 0.50 L Estimated GFR > 60.0 BUN/Creatinine Ratio 16.0 Glucose 84 Calcium 9.1 Total Bilirubin 0.3 AST 17 ALT 19 Alkaline Phosphatase 84 Total Creatine Kinase 51 CK-MB (CK-2) TNP CK-MB (CK-2) Rel Index TNP Troponin I < 0.012 Total Protein 7.5 Albumin 4.2 Globulin 3.3 Albumin/Globulin Ratio 1.3 Lipase 52 06/16/18 17:14 WBC RBC Hgb Hct MCV MCH MCHC RDW Plt Count Neut % (Auto) Lymph % (Auto) [place] % (Auto) Eos % (Auto) Baso % (Auto) Neut # (Auto) Lymph # (Auto) [place] # (Auto) Eos # (Auto) Baso # (Auto) PT INR APTT 31 Sodium Potassium Chloride Carbon Dioxide BUN Creatinine Estimated GFR BUN/Creatinine Ratio Glucose Calcium Total Bilirubin AST ALT Alkaline Phosphatase Total Creatine Kinase CK-MB (CK-2) CK-MB (CK-2) Rel Index Troponin I Total Protein Albumin Globulin Albumin/Globulin Ratio Lipase Assessment & Plan (1) Pulmonary embolism: Problem details: 58-year-old female admitted to the hospital for recurrent pulmonary embolus. She has a large right pulmonary artery PE. Despite this she is not hypoxic. She was having symptomatic shortness of breath and chest pain. the patient has been started on IV heparin in the emergency department. She will be switched to Lovenox. Patient hopefully will be able to take a oral direct acting anticoagulant at discharge. this was present on admission. Patient indicates she does not want to be resuscitated and is tearful. She was clear based on a lots of thoughtful considerations as such she will be made DNR. Will obtain a cardiac echo given the large pulmonary embolus. She is hemodynamically stable at this time. 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 Current visit: Yes Status: Acute (4) Depression: Problem details: Depression, present on admission, continue Lexapro Current visit: Yes Status: Acute (5) Chronic daily headache: Problem details: Chronic daily headache continue her usual treat Current visit: Yes Status: Acute (6) Trigeminal neuralgia: Problem details: Trigeminal neuralgia, will continue her valacyclovir Current visit: Yes Status: Acute
--- NOTE | 2018-06-16 18:58 | PC.NURSE ---
1839 - Patient admitted to room 103. Brought over on stretcher by nursing staff. Alert and oriented with pleasant affect. Denies pain at this time. Able to move all extremities. 94% on room air. Brought over with heparin gtt running. Clarified order with Dr. Crawford who stated that heparin gtt is to be D/C'd. Heparin gtt stopped per order. Oriented to room and call light, call light within reach.
[2018-06-16] MEDS: ENOXAPARIN 100 MG/ML SYRINGE 85 MG SUBCUT (20:25)
[2018-06-16] MEDS: FLUTICASONE/SALMETEROL 500/50 14 PUFF DISKUS INH (21:01)
[2018-06-16 21:36] LABS: Troponin I < 0.012 ng/mL (0.01-0.034)
[2018-06-17] VITALS (7 sets, daily range): BP systolic 115–143; BP diastolic 67–81; PULSE 61–71; RESP 12–18; TEMP 35.8–36.8; O2SAT 94–98
--- NOTE | 2018-06-17 | DI.US.S_ITS ---
PROCEDURE: US PERIPH VENOUS LOW EXTREM BI INDICATIONS: EDEMA TECHNIQUE: Real-time imaging, as well as color and pulse Doppler interrogation, were performed of the deep veins of both legs from the inguinal ligament to the popliteal fossa. COMPARISON: None. FINDINGS: Right: The common femoral, femoral and popliteal veins are normally compressible, and free of intraluminal thrombus. Color and pulse Doppler demonstrate normal phasic intravascular flow. There is normal augmentation response to distal compression maneuver. Left: The thrombus is noted in the left superficial femoral vein which causes areas of occlusion or occlusion. Nonocclusive thrombus is noted in the left popliteal vein. IMPRESSION: 1. Abnormal study demonstrating deep vein thrombosis involving the left lower extremity. 2. No evidence of deep vein thrombosis involving the right lower extremity. Dictated by: Katya Morrow MD, PhD on 06/17/2018 at 12:34 Approved by: Katya Morrow MD, PhD on 06/17/2018 at 12:37
[2018-06-17 01:11] LABS: RBC Urine None Seen (0-5/HPF); WBC Urine None Seen (0-5/HPF)
[2018-06-17 01:13] LABS: Appearance Urine UA CLEAR; Bilirubin Urine UA NEGATIVE (NEGATIVE); Color Urine UA YELLOW; Glucose Urine UA NEGATIVE (Negative); Ketones Urine UA 1+ (NEGATIVE); Leukocyte Esterase Urine UA NEGATIVE (NEGATIVE); Nitrite Urine UA NEGATIVE (Negative); Occult Blood Urine UA NEGATIVE (Negative); Protein Urine UA NEGATIVE (Negative); Urobilinogen Urine UA 0.2 E.U./dL (0.2); pH Urine UA 6.5 (4.5-8.0)
[2018-06-17 01:20] LABS: Bacteria Urine Occasional (0-1); Culture Indicated Urine Cult Not Indicated; Squamous Epithelial Cell Urine 1-5 /HPF (0-5/HPF)
[2018-06-17 05:25] LABS: Add Manual Diff / Slide Review NO; Basophils Absolute Auto 100 /uL (0-100); Basophils Percent Auto 0.8 % (0-2); Eosinophils Absolute Auto 400 /uL (0-450); Eosinophils Percent Auto 7.2 % (2-4); Hematocrit 36.3 % (36-46); Hemoglobin 12.5 g/dL (12.0-16.0); Lymphocytes Absolute Auto 1900 /uL (1100-4500); Lymphocytes Percent Auto 29.9 % (25-40); Mean Corpuscular HGB Conc 34.4 % (30-36); Mean Corpuscular Hemoglobin 28.7 PG (26-34); Mean Corpuscular Volume 83.5 fL (80-100); Monocytes Absolute Auto 600 /uL (0-900); Monocytes Percent Auto 9.6 % (3-14); Neutrophils Absolute Auto 3300 /uL (1500-7000); Neutrophils Percent Auto 52.5 % (50-75); Platelet Count 226 X10^3/uL (150-400); Red Blood Cell Count 4.35 X10^6/uL (4.0-5.2); Red Cell Distribution Width 14.4 % (11.6-14.8); White Blood Cell Count 6.3 X10^3/uL (4.5-11.0)
[2018-06-17 05:32] LABS: Blood Urea Nitrogen 8 mg/dL (7-17); Calcium 8.9 mg/dL (8.4-10.2); Carbon Dioxide 24 mmol/L (22-32); Chloride 107 mmol/L (98-107); Estimated Glomerular Filt Rate > 60.0 mL/min (>60); Glucose 83 mg/dL (70-100); HEMOLYSIS < 15 (0-50); Sodium 140 mmol/L (137-145)
[2018-06-17] MEDS: SODIUM CHLORIDE 0.9% 1,000 ML 84 ML IV (06:24)
[2018-06-17] MEDS: FLUTICASONE/SALMETEROL 500/50 14 PUFF DISKUS INH (07:43)
[2018-06-17] MEDS: valACYclovir 500 MG TABLET 1000 MG PO (08:44)
[2018-06-17] MEDS: ESCITALOPRAM 10 MG TABLET 5 MG PO (08:44)
[2018-06-17] MEDS: ENOXAPARIN 100 MG/ML SYRINGE 85 MG SUBCUT ×2 (08:45→15:44)
--- NOTE | 2018-06-17 10:33 | PM.DS.1 ---
History of Present Illness Chief complaint: Chest pain sob Narrative: The patient is a 58-year-old female with a history of pulmonary embolus who was to be maintained on lifelong Coumadin. This was diagnosed in 2006. Two years ago the patient discontinued Coumadin as she did not like getting frequent pro times. The patient also was diagnosed with breast cancer in 2010. She has had a bilateral mastectomy. She was initially treated with chemo and radiation for right breast cancer and ultimately had a left breast removed as well. She was in her usual state of health until the weekend. He developed severe chest pain with pleuritic shortness of breath. Her pain became significantly worse on Friday. Seemed to ease up. Patient started taking Coumadin herself. She shared with her friends that she was concerned about having a pulmonary embolus who encouraged her to come into the hospital. She denies any fever or chills. She does reports some hemoptysis. She notes that her breathing has improved and her chest pain has gotten better. She has not had nausea vomiting or diarrhea. She denies any hematemesis or melena. She does report a remote history of gastritis with acyclovir but no other history of peptic ulcer disease. patient underwent a CT angiogram. This confirmed a large pulmonary embolus in the right lung. CT findings are as follows:Extensive pulmonary emboli involving right main pulmonary artery distally extending to segmental and subsegmental branches of right pulmonary arteries. No left-sided pulmonary emboli. Of note the patient reports a brother from pulmonary embolus. Another brother has an inferior vena cava filter. And she has another brother who also has had a history of pulmonary embolus. Patient does state she had a hypercoagulable workup and no identified hypercoagulable state was identified. despite this she was to be maintained on lifelong Coumadin and self discontinued it 2 years ago. Discharge Providers Date of admission: 06/16/18 18:06 Discharge Date: 06/17/18 Discharge provider: Belen Crawford MD Summary Discharge Diagnosis: 1. Acute right pulmonary artery embolus, PE, present on admission, recurrent 2. Left Superficial Femoral Vein DVT, Present on admission 3. History of breast cancer 4. Trigeminal neuropathy 5. History of encephalitis 5. Asthma Hospital Course: The patient is a 58-year-old female who was admitted to the hospital with a right pulmonary artery PE. She was not hypoxic. Her main complaint was pain on deep inspiration. She continues to have some chest pain. although her chest pain has improved. She is not short of breath. She is not hypoxic. The patient tolerated both Lovenox and IV heparin without difficulty. She is willing to take a oral anticoagulant at discharge. the patient will have a cardiac echo obtained today. Assuming there is no RV strain and she can start Xarelto today she will be discharged home. Patient undewent Echo today which revealed no right heart strain. She had a duplex of her lower extremity which confirmed a left superficial femoral vein DVT. I discussed the case with the Interventional Radiologist at [facility]. He agreed that a inferior vena cava filter is justified and can be performed as an outpatient. She will continue on Xeralto indefinitely. I reviewed the plan with the patient who agrees. She was discharged home. Status at Discharge Cognitive/behavioral status at discharge: oriented Functional status at discharge: independent ambulation Overall status at discharge: patient is back to baseline Time Spent with Patient Less than 30 minutes Exam Vital Signs (past 8 hours): - 06/17/18 05:00 06/17/18 07:45 06/17/18 08:00 Temperature 96.5 F L 98.2 F Pulse Rate 61 62 64 Respiratory Rate 17 16 18 Blood Pressure 116/71 143/81 H Pulse Oximetry 97 94 Oxygen Delivery Method Room Air Oxygen Flow Rate 0 Narrative Exam Narrative: Pleasant female resting comfortably in no obvious distress Lungs: Clear to auscultation Cardiac exam: Regular rate and rhythm normal S1-S2 with a 2/6 systolic ejection Breasts: Bilateral mastectomy scars well healed with no erythema Abdomen: Soft and nontender Extremities: No edema Objective Labs Result Diagrams: 06/17/18 05:06 06/17/18 05:06 Labs: Laboratory Results - last 24 hr 06/16/18 06/16/18 06/16/18 15:00 15:00 15:00 WBC 8.2 RBC 4.53 Hgb 13.1 Hct 38.4 MCV 84.7 MCH 28.9 MCHC 34.1 RDW 14.1 Plt Count 250 Neut % (Auto) 68.9 Lymph % (Auto) 17.1 L [place] % (Auto) 9.2 Eos % (Auto) 4.2 H Baso % (Auto) 0.6 Neut # (Auto) 5600 Lymph # (Auto) 1400 [place] # (Auto) 800 Eos # (Auto) 300 Baso # (Auto) 100 PT 17.1 H INR 1.5 H APTT 30 Sodium 136 L Potassium 4.2 Chloride 102 Carbon Dioxide 26 BUN 8 Creatinine 0.50 L Estimated GFR > 60.0 BUN/Creatinine Ratio 16.0 Glucose 84 Calcium 9.1 Total Bilirubin 0.3 AST 17 ALT 19 Alkaline Phosphatase 84 Total Creatine Kinase 51 CK-MB (CK-2) TNP CK-MB (CK-2) Rel Index TNP Troponin I < 0.012 Total Protein 7.5 Albumin 4.2 Globulin 3.3 Albumin/Globulin Ratio 1.3 Lipase 52 Urine Color Urine Appearance Urine pH Ur Specific [place] Urine Protein Urine Glucose (UA) Urine Ketones Urine Occult Blood Urine Nitrate Urine Bilirubin Urine Urobilinogen Ur Leukocyte Esterase Urine RBC Urine WBC Ur Squamous Epith Cells Urine Bacteria Ur Culture Indicated? Nasal Screen MRSA (PCR) 06/16/18 06/16/18 06/16/18 17:14 18:40 21:00 WBC RBC Hgb Hct MCV MCH MCHC RDW Plt Count Neut % (Auto) Lymph % (Auto) [place] % (Auto) Eos % (Auto) Baso % (Auto) Neut # (Auto) Lymph # (Auto) [place] # (Auto) Eos # (Auto) Baso # (Auto) PT INR APTT 31 Sodium Potassium Chloride Carbon Dioxide BUN Creatinine Estimated GFR BUN/Creatinine Ratio Glucose Calcium Total Bilirubin AST ALT Alkaline Phosphatase Total Creatine Kinase CK-MB (CK-2) CK-MB (CK-2) Rel Index Troponin I < 0.012 Total Protein Albumin Globulin Albumin/Globulin Ratio Lipase Urine Color Urine Appearance Urine pH Ur Specific [place] Urine Protein Urine Glucose (UA) Urine Ketones Urine Occult Blood Urine Nitrate Urine Bilirubin Urine Urobilinogen Ur Leukocyte Esterase Urine RBC Urine WBC Ur Squamous Epith Cells Urine Bacteria Ur Culture Indicated? Nasal Screen MRSA (PCR) Negative for mrsa 06/17/18 06/17/18 06/17/18 01:06 05:06 05:06 WBC 6.3 RBC 4.35 Hgb 12.5 Hct 36.3 MCV 83.5 MCH 28.7 MCHC 34.4 RDW 14.4 Plt Count 226 Neut % (Auto) 52.5 Lymph % (Auto) 29.9 [place] % (Auto) 9.6 Eos % (Auto) 7.2 H Baso % (Auto) 0.8 Neut # (Auto) 3300 Lymph # (Auto) 1900 [place] # (Auto) 600 Eos # (Auto) 400 Baso # (Auto) 100 PT INR APTT Sodium 140 Potassium 4.0 Chloride 107 Carbon Dioxide 24 BUN 8 Creatinine 0.50 L Estimated GFR > 60.0 BUN/Creatinine Ratio 16.0 Glucose 83 Calcium 8.9 Total Bilirubin AST ALT Alkaline Phosphatase Total Creatine Kinase CK-MB (CK-2) CK-MB (CK-2) Rel Index Troponin I Total Protein Albumin Globulin Albumin/Globulin Ratio Lipase Urine Color Yellow Urine Appearance Clear Urine pH 6.5 Ur Specific [place] 1.010 Urine Protein Negative Urine Glucose (UA) Negative Urine Ketones 1+ H Urine Occult Blood Negative Urine Nitrate Negative Urine Bilirubin Negative Urine Urobilinogen 0.2 Ur Leukocyte Esterase Negative Urine RBC None seen Urine WBC None seen Ur Squamous Epith Cells 1-5 /hpf Urine Bacteria Occasional (0-1) Ur Culture Indicated? Cult not indicated Nasal Screen MRSA (PCR) Discharge Plan Discharge Plan Patient Disposition: Home Discharge comment: Patient to follow up with [facility] Interventional Radiology for a removable IVC Filter JOCELYNN. She should continue Xeralto indefinitely. She will take 15 mg twice daily for 21 days then she remain on 20 mg daily indefinitely. This was discussed with the patient Discharge Med Rec/Prescriptions Prescriptions: New rivaroxaban 15 mg tablet 15 mg PO BID 21 Days Qty: 42 RF: 0 Continued acyclovir 5 % cream 1 applic topical DIRECTED RF: 0 fluticasone propion-salmeterol 250-50 mcg/dose blister with device 1 puff Inhalation BID RF: 0 valacyclovir 1 gram tablet 1 g PO DAILY RF: 0 albuterol sulfate 90 mcg/actuation HFA aerosol inhaler 1 puff Inhalation PRN PRN (Reason: Shortness Of Breath) RF: 0 escitalopram oxalate 5 mg tablet 5 mg PO DAILY RF: 0 Fish Oil 1,600-500-800 mg/5 mL Liquid 1 dose PO DAILY RF: 0 Essential Oils 1 dose PO DAILY RF: 0 MigreLief 1 tab PO DAILY RF: 0 Vitamin B-12 1 tab PO DAILY RF: 0 cannabidiol (CBD) extract oil 1 dose PO BID RF: 0 lysine 1 tab PO DAILY RF: 0 turmeric 1 cap PO DAILY RF: 0 Discontinued warfarin [Coumadin] 10 mg Tablet 10 mg PO QPM RF: 0 Provider Discharge Instructions Diet: Diet as Tolerated Activity: aS tolerated Oxygen: not indicated Visit Report/Discharge Packet Instructions: DI for Deep Vein Thrombosis, DI for Pulmonary Embolism Visit Report Forms: Stroke Signs & Symptoms Discharge Data Attending Provider: Belen Crawford Admit Date/Time: 06/16/18 18:06
--- NOTE | 2018-06-17 11:20 | PC.NURSE ---
Patient without complaint this morning. Up to BSC without difficulty. Denies pain. Tolerating meals. Plan for ECHO and Bilateral lower extremity doppler today. Continue to monitor and follow plan of care.
--- NOTE | 2018-06-17 13:19 | CM.DANOTE ---
Addendum entered by LEWIS Barraza 06/17/18 15:30: ADD: Per , pt stable for d/c home today and no identified barriers. Plan: Patient to d/c home today via her own vehicle and no further SW needs at this time. LEWIS Barraza Original Note: Patient is a 58 year old female who was admitted to ICU on 06/16/18 for Chest Pain/SOB. Pt has [facility] [facility] for insurance and her PCP is in [place]. EMR was reviewed. Per , pt with a hx of double mastectomy in 2010 and scans showed significant Right Pulmonary Emboli and pt requested to be made DNR. MD requested SW to determine if new Xeralto Rx would be covered by pt's insurance prior to d/c. SW confirmed that pt has previously had rx filled at [facility] but prefers not to use their pharmacy again and is agreeable to prescription being sent to [facility] here within [facility] building to determine if new med is covered. SARAH Mccord kindly coordinated with [facility] and confirmed the medication is covered at 100% with no out of pocket expense and Suri updated . SW met bedside with pt and explained role and pt confirmed that she lives [employer] on [address] and [employer] in [place] and is Independent with ADL's at baseline and is not . Pt has supportive friends at both locations. Pt states she does not believe that she has completed DPOA pwk but her Dtr Walter Willoughby is her informal DPOA and she lives in [place]. Pt states that her vehicle is in the parking lot and she plans to drive herself home to [place] for follow up appointments when she is discharged from the hospital. Pt does not anticipate any SW needs at d/c at this time. Plan: SW to follow for possible pt d/c home today or tomorrow pending further tests this afternoon. SW to follow for any further identified discharge planning needs. LEWIS Barraza Discharge Planning/Care Management CM Discharge Assessment Start: 06/17/18 13:17 Freq: Status: Active Protocol: Document 06/17/18 13:17 BF (Rec: 06/17/18 13:19 BF [id number]) Discharge Planning Assessment Assigned Senior Python Developer LEWIS Montalvo DPOA/Assigned Designee Name informally pt's Dtr Walter Fartun Contact Information [phone] Advance Directives? No Advance Directives on File No History Provided By Patient Medical Record Has Patient been admitted in last 30 No days? Prior Living Arrangements House Comment Patient has a house on [address] and in [place] Household Members friend(s) none Type of transporation used prior to Drives own vehicle admit Comment Pt's vehicle is in the hospital parking lot and pt plans to drive herself at d/c. Independent with ADL's Yes Is patient alert and oriented? Yes Caregiver for Another No Comment Likely home when medically stable. Barriers to Discharge No Discharge Plan Home Transportation Arrangement Patient has her vehicle in the parking lot and plans to drive herself. Referrals Initiated None needed Whiteboard Updated in Patient Room with Yes name and ext. # of Senior Python Developer Review Status In Process Please Provide Date Initial DC 06/17/18 Assessment Was Performed Next Review Type Continued Stay Review
[2018-06-17] MEDS: RIVAROXABAN 10 MG TABLET 15 MG PO (15:43)
--- NOTE | 2018-06-17 16:43 | PC.NURSE ---
1640- Discharged to private car. Home medications stored in pharmacy given to patient at time of discharge. Patient stable at time of discharge.
--- NOTE | 2018-07-07 16:52 | PC.NURSE ---
Late Entry - Heprin gtt continued upon transfer to floor per Janel HERNANDEZ
--- NOTE | 2018-08-03 12:23 | PC.NURSE ---
Late entry- heparin gtt was stopped on 06/16 at 1821 per dc order and nurses note.
== END 2018-06-17 16:43 | disposition home or self-care (01) ==
LOC: ED 17:30 → ICU 06-17 06:51
PROVIDERS: Admitting Provider Internal Medicine; Emergency Provider Emergency Medicine; Visit Provider Internal Medicine
DX: I26.99 Other pulmonary embolism without acute cor pulmonale (principal); R07.9 Chest pain, unspecified; G50.0 Trigeminal neuralgia; R51 Headache; Z87.891 Personal history of nicotine dependence; I82.412 Acute embolism and thrombosis of left femoral vein; J45.909 Unspecified asthma, uncomplicated
CPT/HCPCS: 36415; 36591; 71275; 80048; 80053; 81001; 82550; 83690; 84484; 85025; 85610; 85730; 87797; 93005; 93041; 93306; 93970; 94640; 96361; 96365; 96372; 96375; 99284; 99285; G0378; J1644; J1650; Q9967

== ENCOUNTER 2018-08-10 15:26 | Emergency (ER) | payer OTHER, MEDICAID, SELFPAY ==
[2018-06-16 19:12] VITALS: BMI 33.2
[2018-08-10 15:35] VITALS: BP 106/44; PULSE 79; RESP 17; TEMP 36.9; O2SAT 98; BMI 33.6
--- NOTE | 2018-08-10 15:39 | DI.RAD.S_ITS ---
PROCEDURE: XR CHEST 2V INDICATIONS: shortness of breath TECHNIQUE: 2 views of the chest were acquired. COMPARISON: None. FINDINGS: Surgical changes and devices: None. Lungs and pleura: Mild patchy bilateral perihilar opacity. No pleural effusions or pneumothorax. Mediastinum: Mediastinal contours are normal. Heart size is normal. Bones and chest wall: No suspicious bony abnormalities. Soft tissues appear unremarkable. IMPRESSION: Mild perihilar pneumonia bilaterally. Dictated by: Genny Mcdonough M.D. on 08/10/2018 at 14:59 Approved by: Genny Mcdonough M.D. on 08/10/2018 at 15:00
--- NOTE | 2018-08-10 15:46 | ED.SOB ---
HPI - SOB/Dyspnea General Chief Complaint: Shortness of Breath/Dyspnea Stated Complaint: cp/sob Time Seen by Provider: 08/10/18 15:46 Source: patient Mode of arrival: ambulatory Limitations: no limitations History of Present Illness 58-year-old female with a known history of pulmonary embolus. Is currently on Xarelto. Her last diagnosis was approximately 1 month ago. Here for evaluation of right-sided chest pain and worsening shortness of breath. She states she has been taking her medication. She states she was concerned that she potentially has another pulmonary embolism. She also took 1 dose of Coumadin that she had at home left over from a prior prescription and also a dose of Lovenox and she had a home left over from prior prescription. Related Data Home Medications Medication Instructions Recorded Confirmed Essential Oils 1 dose PO DAILY 06/16/18 06/16/18 Fish Oil 1 dose PO DAILY 06/16/18 06/16/18 MigreLief 1 tab PO DAILY 06/16/18 06/16/18 Vitamin B-12 1 tab PO DAILY 06/16/18 06/16/18 acyclovir 1 applic TOPICAL DIRECTED 06/16/18 06/16/18 albuterol sulfate 1 puff INHALATION PRN PRN 06/16/18 06/16/18 cannabidiol (CBD) extract 1 dose PO BID 06/16/18 06/16/18 escitalopram oxalate 5 mg PO DAILY 06/16/18 08/10/18 fluticasone propion-salmeterol 1 puff INHALATION BID 06/16/18 06/16/18 lysine 1 tab PO DAILY 06/16/18 06/16/18 turmeric 1 cap PO DAILY 06/16/18 06/16/18 valacyclovir 1 g PO DAILY 06/16/18 06/16/18 rivaroxaban [Xarelto] 15 mg PO BID 08/10/18 08/10/18 valacyclovir 08/10/18 Allergies Allergy/AdvReac Type Severity Reaction Status Date / Time pegfilgrastim [From Neulasta] Allergy Severe eyes closed Verified 08/10/18 15:35 Femera Allergy Intermediate Uncoded 08/10/18 15:35 sleep aids AdvReac Intermediate Depression Uncoded 08/10/18 15:35 Review of Systems Constitutional Denies fever(s) and Denies headache(s) ENT Ears, Nose, Mouth, and Throat: Denies headache(s) Cardiovascular Reports chest pain and Reports dyspnea Respiratory Reports dyspnea Gastrointestinal Gastrointestinal: Denies abdominal pain, Denies nausea and Denies vomiting Musculoskeletal Denies myalgias and Denies arthralgias Integumentary/Breasts Denies rash Neurologic Denies behavioral changes and Denies headache(s) Psychiatric Denies behavioral changes Hematologic/Lymphatic Denies easy bleeding and Denies easy bruising [facility] Medical History Breast cancer (Acute) Chronic headache (Acute) Depression (Acute) History of encephalitis (Acute) Pulmonary embolism (Acute) Surgical History (Updated 06/16/18 @ 18:29 by Belen Crawford MD) H/O bilateral mastectomy (Acute) Family History (Updated 06/16/18 @ 18:30 by Belen Crawford MD) Brother History of pulmonary embolus (PE) Social History household members: friend(s) and none Smoking Status: Former smoker alcohol intake: current substance use type: marijuana Family History (Updated 06/16/18 @ 18:30 by Belen Crawford MD) Brother History of pulmonary embolus (PE) Social History household members: friend(s) and none Smoking Status: Former smoker alcohol intake: current substance use type: marijuana Exam Initial Vital Signs Initial Vital Signs: Vital Signs Temperature 98.4 F 08/10/18 15:35 Pulse Rate 79 08/10/18 15:35 Respiratory Rate 17 08/10/18 15:35 Blood Pressure 106/44 L 08/10/18 15:35 Pulse Oximetry 98 08/10/18 15:35 Const General: cooperative, healthy appearing, comfortable, well developed, well groomed and No acute distress Orientation: alert, awake and oriented x3 HENMT Head: normal to inspection and normocephalic Resp Effort & Inspection: normal respiratory effort Auscultation: clear to auscultation bilaterally Cardio Rate: regular rate Rhythm: regular rhythm GI Inspection: non-distended Palpation: soft, No firm and No tender Skin Lesions: no lesions Rashes: no rashes Neuro General: alert and awake Cognition: normal cognition Speech: speech normal Motor: muscle tone normal throughout Extrem General: normal to inspection, capillary refill normal and No edema Psych Appearance: grossly normal and well kempt Scores GCS Karina coma scale eye opening: Spontaneous Karina coma scale verbal response: Orientated Karina coma scale motor response: Obey commands [place] coma scale total score: 15 Course Orders Ordered: ED Orders 08/10/18 15:33 EKG-12 Lead Stat 08/10/18 15:34 B Type Natriuretic Peptide Stat Lipase Stat Partial Thromboplastin Time Stat Prothrombin Time INR Stat Troponin I Stat 08/10/18 15:37 Complete Blood Count AUTO DIFF Stat Comprehensive Metabolic Panel Stat Lactate (Lactic Acid) Stat 08/10/18 15:39 XR chest 2V Stat 08/10/18 16:09 CT angio chest PE protocol Stat Sodium Chloride (Normal Saline 0.9%) 1,000 mls @ 1,000 mls/hr IV BOLUS ONE Stop: 08/10/18 17:08 Last Admin: 08/10/18 16:46 Dose: 1,000 mls/hr Vital Signs - 8 hr 08/10/18 15:35 Temperature 98.4 F Pulse Rate 79 Respiratory Rate 17 Blood Pressure 106/44 L Pulse Oximetry 98 MDM - SOB/Dyspnea Lab Data Attestation: I reviewed the patient's lab results. Result diagrams: 08/10/18 15:37 08/10/18 15:37 Lab Results 08/10/18 08/10/18 08/10/18 Range/Units 15:34 15:34 15:34 WBC (4.5-11.0) X10^3/uL RBC (4.0-5.2) X10^6/uL Hgb (12.0-16.0) g/dL Hct (36-46) % MCV (80-100) fL MCH (26-34) PG MCHC (30-36) % RDW (11.6-14.8) % Plt Count (150-400) X10^3/uL Neut % (Auto) (50-75) % Lymph % (Auto) (25-40) % [place] % (Auto) (3-14) % Eos % (Auto) (2-4) % Baso % (Auto) (0-2) % Neut # (Auto) (7237-3989) /uL Lymph # (Auto) (4667-6682) /uL [place] # (Auto) (0-900) /uL Eos # (Auto) (0-450) /uL Baso # (Auto) (0-100) /uL PT 14.1 H (10.1-12.7) SECONDS INR 1.2 (0.9-1.3) APTT 38 H D (26.4-36.2) SECONDS Sodium (137-145) mmol/L Potassium (3.4-5.1) mmol/L Chloride (98-107) mmol/L Carbon Dioxide (22-32) mmol/L BUN (7-17) mg/dL Creatinine (0.52-1.04) mg/dL Estimated GFR (>60) mL/min BUN/Creatinine Ratio (6-22) Glucose (70-100) mg/dL Lactate (0.7-2.1) mmol/L Calcium (8.4-10.2) mg/dL Total Bilirubin (0.2-1.3) mg/dL AST (14-36) IU/L ALT (9-52) IU/L Alkaline Phosphatase (38-126) U/L Troponin I < 0.012 (0.01-0.034) ng/mL B-Natriuretic Peptide < 100 (<100) Total Protein (6.3-8.2) g/dL Albumin (3.5-5.0) g/dL Globulin (1.7-4.1) g/dL Albumin/Globulin Ratio (1.0-2.8) Lipase 108 (23-300) U/L 08/10/18 08/10/18 08/10/18 Range/Units 15:37 15:37 15:37 WBC 10.1 (4.5-11.0) X10^3/uL RBC 4.85 (4.0-5.2) X10^6/uL Hgb 14.4 (12.0-16.0) g/dL Hct 42.6 (36-46) % MCV 87.9 (80-100) fL MCH 29.7 (26-34) PG MCHC 33.7 (30-36) % RDW 15.6 H (11.6-14.8) % Plt Count 272 (150-400) X10^3/uL Neut % (Auto) 71.7 (50-75) % Lymph % (Auto) 21.4 L (25-40) % [place] % (Auto) 5.3 (3-14) % Eos % (Auto) 0.9 L (2-4) % Baso % (Auto) 0.7 (0-2) % Neut # (Auto) 7300 H (1551-8929) /uL Lymph # (Auto) 2200 (3637-9121) /uL [place] # (Auto) 500 (0-900) /uL Eos # (Auto) 100 (0-450) /uL Baso # (Auto) 100 (0-100) /uL PT (10.1-12.7) SECONDS INR (0.9-1.3) APTT (26.4-36.2) SECONDS Sodium 140 (137-145) mmol/L Potassium 4.0 (3.4-5.1) mmol/L Chloride 103 (98-107) mmol/L Carbon Dioxide 29 (22-32) mmol/L BUN 13 (7-17) mg/dL Creatinine 0.60 (0.52-1.04) mg/dL Estimated GFR > 60.0 (>60) mL/min BUN/Creatinine Ratio 21.7 (6-22) Glucose 116 H (70-100) mg/dL Lactate 1.5 (0.7-2.1) mmol/L Calcium 9.5 (8.4-10.2) mg/dL Total Bilirubin 0.5 (0.2-1.3) mg/dL AST 29 (14-36) IU/L ALT 18 (9-52) IU/L Alkaline Phosphatase 89 (38-126) U/L Troponin I (0.01-0.034) ng/mL B-Natriuretic Peptide (<100) Total Protein 7.9 (6.3-8.2) g/dL Albumin 4.5 (3.5-5.0) g/dL Globulin 3.4 (1.7-4.1) g/dL Albumin/Globulin Ratio 1.3 (1.0-2.8) Lipase (23-300) U/L Imaging Data CT scan - chest: Radiologist's impression: [address] [address] [address] Scan Report Signed Patient: Jocelin Mcarthur CMR#: [id number] : 1960Acct:[id number] Age/Sex: 58 / FDate of Service: 08/10/18 Loc: ED Accession Number: [id number] Procedure: CT angio chest PE protocol Ordering Provider: Josesito Waddell D.O. PROCEDURE: CT ANGIO CHEST PE PROTOCOL INDICATIONS: Right-sided chest pain, history of PE TECHNIQUE: After the administration of intravenous contrast, 2 mm thick sections acquired from the pulmonary apices to the posterior costophrenic angles. 3-dimensional maximum intensity projection (MIP) coronal and sagittal reformats were then acquired through the thorax. For radiation dose reduction, the following was used: automated exposure control, adjustment of mA and/or kV according to patient size. COMPARISON: [facility], CT, CT ANGIO CHEST PE PROTOCOL, 06/16/2018, 16:06. FINDINGS: Image quality: Excellent. Pulmonary arteries: Pulmonary arteries are normal in size. Previously seen filling defect within the right main pulmonary artery has nearly resolved, with residual mural hypodensity, indicating chronic pulmonary emboli sequelae. Previously seen pulmonary emboli extending into the segmental and subsegmental branches of the right upper and lower lobes have resolved. No evidence of new pulmonary embolus. Lungs and pleura: Subpleural scarring within the right upper lobe anteriorly is present, as before. Previously seen infarct within the superior segment right lower lobe is no longer present, and there is mild residual scarring. No pleural effusions or pneumothorax. Central and peripheral airways are patent. Mediastinum: Heart size is normal, without pericardial effusion. No mediastinal or hilar adenopathy. Thoracic aorta is normal in caliber and enhancement. Esophagus is normal in caliber, without hiatal hernia. Bones and chest wall: No suspicious bony lesions. Ribs and thoracic spine appear intact throughout. Thyroid gland demonstrates no change in multifocal masses within the left lobe, which measures roughly 40 mm anteroposterior and demonstrate scattered calcifications. No axillary or supraclavicular adenopathy. Abdomen: Visualized upper abdominal solid organs appear normal in the early arterial phase of enhancement. IMPRESSION: 1. Resolving right sided pulmonary emboli with residual chronic mural thickening of the right main pulmonary artery. No evidence of acute pulmonary embolus. 2. Resolved infarct within the superior segment right lower lobe. No change in right upper lobe fibrosis. 3. No change in left thyroid mass. This could be further assessed with ultrasound, if clinically indicated. Dictated by: Genny Mcdonough M.D. on 08/10/2018 at 15:32 Approved by: Genny Mcdonough M.D. on 08/10/2018 at 15:37 ECG Data Attestation: I personally reviewed and interpreted this ECG as follows: Prior ECG tracings: not available for review Interpretation: Sinus rhythm Ventricular rate 80 Normal QRS Normal axis Normal QTC No ST T wave changes MDM Narrative Medical decision making narrative: Patient's CT scan today shows no signs of a new pulmonary embolism. She is currently on anticoagulation. Her EKG is unremarkable. She is not hypoxic, not tachypneic. I did discuss her CT scan findings with her. We also discussed the thyroid ?mass? that was described as a ?goiter ?on her last CTA. Informed her she needed to talk with her primary doctor about a ultrasound. She expressed understanding of this. She also has a follow-up with a bail agent and a wildlife rehabilitator in the next week or so. She was given return precautions. She expressed understanding and agreement plan. Discharge Plan Departure Patient Disposition: Home Clinical Impression: Shortness of breath Instructions: How to Manage Shortness of Breath Activity Restrictions/Additional Instructions: Continue all of your medications as directed. You do need to talk with your primary provider about the findings on the CT scan regarding your thyroid. I do recommend an outpatient ultrasound. Keep all of your scheduled medical appointments. Return to the emergency department for any new or worsening symptoms Prescriptions: No Action acyclovir 5 % cream 1 applic topical DIRECTED RF: 0 fluticasone propion-salmeterol 250-50 mcg/dose blister with device 1 puff Inhalation BID RF: 0 valacyclovir 1 gram tablet 1 g PO DAILY RF: 0 albuterol sulfate 90 mcg/actuation HFA aerosol inhaler 1 puff Inhalation PRN PRN (Reason: Shortness Of Breath) RF: 0 escitalopram oxalate 5 mg tablet 5 mg PO DAILY RF: 0 Fish Oil 1,600-500-800 mg/5 mL Liquid 1 dose PO DAILY RF: 0 Essential Oils 1 dose PO DAILY RF: 0 MigreLief 1 tab PO DAILY RF: 0 Vitamin B-12 1 tab PO DAILY RF: 0 cannabidiol (CBD) extract oil 1 dose PO BID RF: 0 lysine 1 tab PO DAILY RF: 0 turmeric 1 cap PO DAILY RF: 0 valacyclovir 1 gram tablet RF: 0 Xarelto 15 mg tablet 15 mg PO BID RF: 0
[2018-08-10 15:50] LABS: Add Manual Diff / Slide Review NO; Basophils Absolute Auto 100 /uL (0-100); Basophils Percent Auto 0.7 % (0-2); Eosinophils Absolute Auto 100 /uL (0-450); Eosinophils Percent Auto 0.9 % (2-4); Hematocrit 42.6 % (36-46); Hemoglobin 14.4 g/dL (12.0-16.0); Lymphocytes Absolute Auto 2200 /uL (1100-4500); Lymphocytes Percent Auto 21.4 % (25-40); Mean Corpuscular HGB Conc 33.7 % (30-36); Mean Corpuscular Hemoglobin 29.7 PG (26-34); Mean Corpuscular Volume 87.9 fL (80-100); Monocytes Absolute Auto 500 /uL (0-900); Monocytes Percent Auto 5.3 % (3-14); Neutrophils Absolute Auto 7300 /uL (1500-7000); Neutrophils Percent Auto 71.7 % (50-75); Platelet Count 272 X10^3/uL (150-400); Red Blood Cell Count 4.85 X10^6/uL (4.0-5.2); Red Cell Distribution Width 15.6 % (11.6-14.8); White Blood Cell Count 10.1 X10^3/uL (4.5-11.0)
[2018-08-10 15:56] LABS: INR 1.2 (0.9-1.3); Prothrombin Time 14.1 SECONDS (10.1-12.7)
[2018-08-10 15:56] LABS: Alanine Aminotransferase 18 IU/L (9-52); Albumin 4.5 g/dL (3.5-5.0); Albumin Globulin Ratio 1.3 (1.0-2.8); Alkaline Phosphatase 89 U/L (38-126); Aspartate Aminotransferase 29 IU/L (14-36); BUN Creatinine Ratio 21.7 (6-22); Bilirubin Total 0.5 mg/dL (0.2-1.3); Blood Urea Nitrogen 13 mg/dL (7-17); Calcium 9.5 mg/dL (8.4-10.2); Carbon Dioxide 29 mmol/L (22-32); Chloride 103 mmol/L (98-107); Estimated Glomerular Filt Rate > 60.0 mL/min (>60); Globulin 3.4 g/dL (1.7-4.1); Glucose 116 mg/dL (70-100); Sodium 140 mmol/L (137-145); Total Protein 7.9 g/dL (6.3-8.2)
[2018-08-10 15:57] LABS: HEMOLYSIS 51 (0-50)
[2018-08-10 15:59] LABS: PTT Partial Thromboplastin Tim 38 SECONDS (26.4-36.2)
--- NOTE | 2018-08-10 16:09 | DI.CT.S_ITS ---
PROCEDURE: CT ANGIO CHEST PE PROTOCOL INDICATIONS: Right-sided chest pain, history of PE TECHNIQUE: After the administration of intravenous contrast, 2 mm thick sections acquired from the pulmonary apices to the posterior costophrenic angles. 3-dimensional maximum intensity projection (MIP) coronal and sagittal reformats were then acquired through the thorax. For radiation dose reduction, the following was used: automated exposure control, adjustment of mA and/or kV according to patient size. COMPARISON: [facility], CT, CT ANGIO CHEST PE PROTOCOL, 06/16/2018, 16:06. FINDINGS: Image quality: Excellent. Pulmonary arteries: Pulmonary arteries are normal in size. Previously seen filling defect within the right main pulmonary artery has nearly resolved, with residual mural hypodensity, indicating chronic pulmonary emboli sequelae. Previously seen pulmonary emboli extending into the segmental and subsegmental branches of the right upper and lower lobes have resolved. No evidence of new pulmonary embolus. Lungs and pleura: Subpleural scarring within the right upper lobe anteriorly is present, as before. Previously seen infarct within the superior segment right lower lobe is no longer present, and there is mild residual scarring. No pleural effusions or pneumothorax. Central and peripheral airways are patent. Mediastinum: Heart size is normal, without pericardial effusion. No mediastinal or hilar adenopathy. Thoracic aorta is normal in caliber and enhancement. Esophagus is normal in caliber, without hiatal hernia. Bones and chest wall: No suspicious bony lesions. Ribs and thoracic spine appear intact throughout. Thyroid gland demonstrates no change in multifocal masses within the left lobe, which measures roughly 40 mm anteroposterior and demonstrate scattered calcifications. No axillary or supraclavicular adenopathy. Abdomen: Visualized upper abdominal solid organs appear normal in the early arterial phase of enhancement. IMPRESSION: 1. Resolving right sided pulmonary emboli with residual chronic mural thickening of the right main pulmonary artery. No evidence of acute pulmonary embolus. 2. Resolved infarct within the superior segment right lower lobe. No change in right upper lobe fibrosis. 3. No change in left thyroid mass. This could be further assessed with ultrasound, if clinically indicated. Dictated by: Genny Mcdonough M.D. on 08/10/2018 at 15:32 Approved by: Genny Mcdonough M.D. on 08/10/2018 at 15:37
[2018-08-10 16:15] LABS: Lipase 108 U/L (23-300)
[2018-08-10 16:21] LABS: B Type Natriuretic Peptide < 100 (<100)
[2018-08-10 16:23] LABS: Lactate (Lactic Acid) 1.5 mmol/L (0.7-2.1)
[2018-08-10 16:28] LABS: Troponin I < 0.012 ng/mL (0.01-0.034)
[2018-08-10] MEDS: SODIUM CHLORIDE 0.9% 1,000 ML 1000 ML IV (16:46)
[2018-08-10 17:11] VITALS: BP 96/57; PULSE 72; RESP 27; O2SAT 100
[2018-08-10 17:24] VITALS: BP 109/71; PULSE 71; RESP 17; O2SAT 100
== END 2018-08-10 17:59 | disposition home or self-care (01) ==
PROVIDERS: Emergency Provider Emergency Medicine
DX: R06.02 Shortness of breath (principal); R07.9 Chest pain, unspecified; Z86.711 Personal history of pulmonary embolism; Z79.01 Long term (current) use of anticoagulants
CPT/HCPCS: 36415; 36591; 71046; 71275; 80053; 83605; 83690; 83880; 84484; 85025; 85610; 85730; 93005; 96360; 99283; 99285

== ENCOUNTER → 2018-08-17 14:11 | Oncology outpatient (ONC) | payer OTHER, MEDICAID, SELFPAY ==
[2018-06-16 19:12] VITALS: BMI 33.2
--- NOTE | 2018-08-17 15:47 | ONC.CONS ---
History of Present Illness - Data of Consult Patient: new to practice Consult date: 08/17/18 Requesting Physician: Jean Claude Primary Care Provider: Unknown - Consult Narrative Reason for consult: Pulmonary Embolism Narrative: Jocelin Mcarthur is a 58 year old female with a history of pulmonary embolus and breast cancer. Her initial PE was diagnosed in 2006. She has been on Coumadin until 2016 when she discontinued Coumadin as she did not like getting frequent pro times. In May, 2018, she developed severe chest pain with pleuritic shortness of breath. She was found to have PE on CT. She is now on Xarelto 15 mg bid daily. Her pain is getting better now. Her breathing is getting worse and the chest pain is getting 'back'. No leg swelling. But she has left leg pain. The patient also was diagnosed with right breast cancer in 2010, stage IIB, IDC, HR+, HER2-, status post RIGHT mastectomy followed by chemotherapy and radiation and a limited course of hormone therapy (< 1 year). She also underwent prophylactic left mastectomy when she detected a mass that ultimately proved to be benign. Of note the patient reports a brother from pulmonary embolus. Another brother has an inferior vena cava filter. And she has another brother who also has had a history of pulmonary embolus. Patient does state she had a hypercoagulable workup and no identified hypercoagulable state was identified. Home Medications and Allergies Home Medications Medication Instructions Recorded Confirmed Type Essential Oils 1 dose PO DAILY 06/16/18 06/16/18 History MigreLief 1 tab PO DAILY 06/16/18 06/16/18 History Vitamin B-12 1 tab PO DAILY 06/16/18 06/16/18 History acyclovir 1 applic TOPICAL DIRECTED 06/16/18 06/16/18 History albuterol sulfate 1 puff INHALATION PRN PRN 06/16/18 06/16/18 History cannabidiol (CBD) extract 1 dose PO BID 06/16/18 06/16/18 History escitalopram oxalate 5 mg PO DAILY 06/16/18 08/10/18 History fluticasone propion-salmeterol 1 puff INHALATION BID 06/16/18 06/16/18 History lysine 1 tab PO DAILY 06/16/18 06/16/18 History turmeric 1 cap PO DAILY 06/16/18 06/16/18 History valacyclovir 1 g PO DAILY 06/16/18 06/16/18 History rivaroxaban [Xarelto] 15 mg PO BID 08/10/18 08/10/18 History valacyclovir 08/10/18 History rivaroxaban [Xarelto] 20 mg PO DAILY #90 tab 08/17/18 Rx Allergies Allergy/AdvReac Type Severity Reaction Status Date / Time pegfilgrastim [From Neulasta] Allergy Severe eyes closed Verified 08/10/18 15:35 Femera Allergy Intermediate Uncoded 08/10/18 15:35 sleep aids AdvReac Intermediate Depression Uncoded 08/10/18 15:35 Medical History - Medical, Surgical, Family History Medical History: Medical History (Updated 08/17/18 @ 17:50 by Rosanne Munoz MD) Breast cancer Chronic headache Depression History of encephalitis Pulmonary embolism Surgical History: Surgical History (Updated 08/17/18 @ 17:50 by Rosanne Munoz MD) H/O bilateral mastectomy Family History: Family History (Updated 06/16/18 @ 18:30 by Belen Crawford MD) Brother History of pulmonary embolus (PE) - Social History Smoking Status: Former smoker Review of Systems All systems PM: reviewed and no additional remarkable complaints except as stated Exam Vital signs: Last Vital Signs Temp 97.8 F 08/17/18 15:57 Pulse 93 H 08/17/18 15:57 Resp 18 08/17/18 15:57 BP 114/77 08/17/18 15:57 Pulse Ox 98 08/17/18 15:57 ECOG 1 Narrative: Gen: WDWN, NAD, pleasant and cooperative. HEENT: NCAT, EOMI, PERRLA, anicteric sclera. Neck: Supple, No palpable thyromegaly or lymphadenopathy. Respiratory: CTAB, no wheezes audible. No JVD Cardiovascular: RRR, S1 and S2 normal, no M/G/R. Abdomen: Soft, NTND, BS normal, no palpable organomegaly Extremities: No LE pitting edema. Lymphatic: no palpable lymph nodes in the neck, axillae, or groins. Neurological: AOx3, CN II-XII grossly intact. No focal motor or sensory deficit. Psychiatric: Good judgment and insight; normal affect; normal thought process; cooperative, no depression Breast exam: deferred. Results - Labs None from today to review Assessment and Plan (1) Pulmonary embolism Her initial PE was diagnosed in 2006, on Coumadin until 2016 when she discontinued herself. PE diagnosed in May 2018. On Xarelto 15 mg bid. Strong family history of VTE: one brother from pulmonary embolus, another brother has an inferior vena cava filter, and a third brother has had a history of pulmonary embolus. As for the treatment of pulmonary embolism, I will reduce the dosage of Xarelto to 20 mg once a day per guidelines. I also encouraged the patient to get all the medical records from [place], [place]. We will have the patient come back in 1 month for re-evaluation. (2) History of breast cancer Right breast cancer in 2010, stage IIB, IDC, HR+, HER2-, status post RIGHT mastectomy followed by chemotherapy and radiation and a limited course of hormone therapy (< 1 year). She also underwent prophylactic left mastectomy when she detected a mass that ultimately proved to be benign. Once again, I will try to get all the medical records from her previous medical oncologist Dr. Holly Caldera [facility]. When she comes back for follow-up visit will re-evaluate the situation of breast cancer.
[2018-08-17 15:57] VITALS: BP 114/77; PULSE 93; RESP 18; TEMP 36.6; O2SAT 98
--- NOTE | 2018-08-31 10:36 | PC.NURSE ---
Addendum entered by Shanti Rivera R.N. 08/31/18 12:39: Patient also stated in the 12:[address] Munoz would not prescribe the higher dose of Xarelto that he should put her back on warfarin. This nurse stated that she may need to see PCP about that in order to be monitored. Patient stated she thinks Dr. Munoz should take care of it. Nurse said patient has an appt with Dr. Munoz on 09/14 but that she would have scheduling call patient to try to make an earlier appt. Addendum entered by Shanti Rivera R.N. 08/31/18 12:10: After reading original note below, this nurse called patient to inform her of Dr. Munoz's instructions: that she should continue on Xarelto 20mg once a day and that 20mg BID would be dangerous because of risk of bleeding; she should see a neurologist about the shingles issue. Patient responded that she does not agree that this dose would be therapeutic and wishes to have noted in her medical record that she was denied the treatment she knows is correct. Original Note: Patient called over weekend with messages re her Xarelto. She thought her dosage was being increased to 20 mg BID and took this for several days, stating that in this time she felt stronger and better. Since she read the bottle and cut back to once per day she has noticed increasingly labored breathing. This nurse could not detect labored breathing over the phone, patient able to talk with no pauses for breath, however patient subjectively feels it is worse and that she is having asthmatic symptoms. She is requesting a higher dose of Xarelto than was last prescribed, stating the 20 mg BID was good. 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 She states that she wishes Dr. Munoz to address this with acyclovir IV and will not do any cancer treatment until this issue is addressed.
--- NOTE | 2018-09-01 10:39 | PC.NURSE ---
This nurse called patient to inform of Dr. Munoz's response to previous communication about xarelto, that patient should see her PCP if she thinks xarelto not working for her and wants to go back on warfarin. She was advised by this nurse to keep her 09/[address] Munoz. patient responded that this is inappropriate care. This nurse reemphasized that she encourages patient to see her primary care provider about this issue.
--- NOTE | 2018-10-29 15:31 | PC.NURSE ---
Rx for xarelto faxed to patient's pharmacy
== END ==
PROVIDERS: Visit Provider Internal Medicine Hematology & Oncology
DX: I26.99 Other pulmonary embolism without acute cor pulmonale (principal); Z79.01 Long term (current) use of anticoagulants; Z85.3 Personal history of malignant neoplasm of breast
CPT/HCPCS: 99204; 99214